=== PATIENT | male | born 1960 | race Caucasian/White ===

== ENCOUNTER 2021-02-05 10:31 | Inpatient (IN) | payer OTHER ==
[2021-02-05 12:16] VITALS: BMI 22.0
[2021-02-05] MEDS ORDERED: diazePAM 5 MG TABLET PO PRN (14:03)
[2021-02-05] MEDS ORDERED: IBUPROFEN 400 MG TABLET (FP) PO PRN (14:03)
[2021-02-05] MEDS ORDERED: MENTHOL/PHENOL 1 EACH UD MM PRN (14:03)
[2021-02-05] MEDS ORDERED: NICOTINE POLACRILEX 2 MG GUM BUC PRN (14:03)
[2021-02-05] MEDS ORDERED: MAG HYDROX/AL HYDROX/SIMETH 30 ML UNIT-DOSE CUP PO PRN (14:03)
[2021-02-05] MEDS ORDERED: ONDANSETRON *ODT* 4 MG TABLET SL PRN (14:03)
[2021-02-05] MEDS ORDERED: MAGNESIUM CITRATE 300 ML BOTTLE PO PRN (14:03)
[2021-02-05] MEDS ORDERED: BISMUTH SUBSALICYLATE 524 MG/30 ML PO PRN (14:03)
[2021-02-05] MEDS ORDERED: ACETAMINOPHEN 325 MG TABLET (FP) PO PRN ×2 (14:03)
[2021-02-05] MEDS ORDERED: METHOCARBAMOL 500 MG TABLET PO PRN (14:03)
[2021-02-05] MEDS ORDERED: MAGNESIUM HYDROX 2400MG/30ML ORAL SUSPENSION 30 ML CUP PO PRN (14:03)
[2021-02-05] MEDS ORDERED: IBUPROFEN 400 MG TABLET (FP) PO ONE (14:25)
[2021-02-05] MEDS: diazePAM 5 MG TABLET PO SCH ×2 (16:56→22:28)
[2021-02-05] MEDS: metFORMIN HCL 500 MG TABLET (FP) PO SCH (16:56)
[2021-02-05] MEDS: INSULIN SLIDING SCALE (NOVOLOG) 1 VIAL SQ SCH ×2 (16:58→22:00)
[2021-02-05] MEDS: hydrOXYzine PAMOATE 25 MG CAPSULE (FP) PO SCH ×2 (17:01→22:27)
[2021-02-05] MEDS: guaiFENesin 200 MG/10 ML 10 ML UNIT-DOSE CUPS PO PRN (20:46)
[2021-02-05] MEDS: MELATONIN 5 MG TABLETS PO SCH (22:27)
[2021-02-05] MEDS: THIAMINE HCL 100 MG TABLET (FP) PO SCH (22:27)
[2021-02-05] MEDS: FLUOCINONIDE 0.05% CREAM (15 GM TUBE) TP SCH (22:27)
[2021-02-05] MEDS ORDERED: INSULIN SLIDING SCALE (NOVOLOG) 1 VIAL SQ ONE (22:39)
[2021-02-05] MEDS ORDERED: INSULIN (LEVEMIR) 100 UNITS/ML UNITS SQ ONE (22:39)
[2021-02-06] MEDS: guaiFENesin 200 MG/10 ML 10 ML UNIT-DOSE CUPS PO PRN (04:06)
[2021-02-06] MEDS: hydrOXYzine PAMOATE 25 MG CAPSULE (FP) PO SCH ×5 (05:27→22:03)
[2021-02-06] MEDS: diazePAM 5 MG TABLET PO SCH ×4 (05:27→22:01)
[2021-02-06] MEDS: metFORMIN HCL 500 MG TABLET (FP) PO SCH ×2 (07:01→17:34)
[2021-02-06] MEDS: INSULIN SLIDING SCALE (NOVOLOG) 1 VIAL SQ SCH ×4 (07:03→22:03)
[2021-02-06 10:10] LABS: HEMATOCRIT 36.7 % (35.4-49); MCH 30.7 pg (25.7-33.7); MCHC 32.7 g/dl (32.0-35.9); MEAN CELL VOLUME 93.8 fl (80-96); MEAN PLT VOLUME 7.3 fl (7.5-11.1); PLATELET COUNT 293 10^3/uL (134-434); RBC 3.92 M/mm3 (4.00-5.60); RDW 14.4 % (11.9-15.9); WHITE BLOOD COUNT 11.8 K/mm3 (4.0-10.0)
[2021-02-06 10:15] LABS: ALBUMIN 3.1 g/dl (3.4-5.0); BLOOD UREA NITROGEN 12.2 mg/dL (7-18); CALCIUM 9.5 mg/dL (8.5-10.1)
[2021-02-06 10:18] LABS: CREATININE 0.8 mg/dL (0.55-1.3)
[2021-02-06 10:20] LABS: BILIRUBIN,TOTAL 0.4 mg/dL (0.2-1); TOT PROT 6.5 g/dl (6.4-8.2)
[2021-02-06] MEDS: ASPIRIN COATED 81 MG TABLET.EC PO SCH (10:33)
[2021-02-06] MEDS: METOPROLOL TARTRATE 50 MG TABLET (FP) PO SCH (10:33)
[2021-02-06] MEDS: PRENATAL VITAMINS W/ FOLIC ACID TABLET (FP) PO SCH (10:33)
[2021-02-06] MEDS: amLODIPine BESYLATE 10 MG TABLET (FP) PO SCH (10:33)
[2021-02-06] MEDS: FLUOCINONIDE 0.05% CREAM (15 GM TUBE) TP SCH ×2 (10:34→22:23)
[2021-02-06] MEDS: MELATONIN 5 MG TABLETS PO SCH (22:01)
[2021-02-06] MEDS: OLANZapine 10 MG TABLET PO SCH (22:01)
[2021-02-06] MEDS: THIAMINE HCL 100 MG TABLET (FP) PO SCH (22:01)
[2021-02-06] MEDS: BENZTROPINE MESYLATE 1 MG TABLET PO SCH (22:01)
[2021-02-07] MEDS: diazePAM 5 MG TABLET PO SCH ×3 (06:17→21:55)
[2021-02-07] MEDS: metFORMIN HCL 500 MG TABLET (FP) PO SCH ×2 (06:17→16:52)
[2021-02-07] MEDS: hydrOXYzine PAMOATE 25 MG CAPSULE (FP) PO SCH ×5 (06:18→21:48)
[2021-02-07] MEDS: INSULIN SLIDING SCALE (NOVOLOG) 1 VIAL SQ SCH ×4 (06:25→21:51)
[2021-02-07] MEDS: PRENATAL VITAMINS W/ FOLIC ACID TABLET (FP) PO SCH (10:13)
[2021-02-07] MEDS: amLODIPine BESYLATE 10 MG TABLET (FP) PO SCH (10:13)
[2021-02-07] MEDS: METOPROLOL TARTRATE 50 MG TABLET (FP) PO SCH (10:13)
[2021-02-07] MEDS: ASPIRIN COATED 81 MG TABLET.EC PO SCH (10:13)
[2021-02-07] MEDS: FLUOCINONIDE 0.05% CREAM (15 GM TUBE) TP SCH ×2 (10:14→21:50)
[2021-02-07 15:06] LABS: EPI CELLS 7 /uL (0-25.1); HYALINE CASTS 1 /uL (0-3.1); PH,URINE 5.5 (5.0-8.0); URINE APPEARANCE CLEAR; URINE BACTERIA 374 /uL (0-1359); URINE BILIRUBIN NEGATIVE (NEGATIVE); URINE COLOR YELLOW; URINE GLUCOSE (UA) 3+ (NEGATIVE); URINE KETONE TRACE (NEGATIVE); URINE LEUK ESTERASE NEGATIVE (NEGATIVE); URINE NITRITE NEGATIVE (NEGATIVE); URINE PROTEIN 3+ (NEGATIVE); URINE RBC 6 /uL (0-23.9); URINE UROBILINOGEN 0.2 mg/dL (0.2-1.0); URINE WBC 5 /uL (0-25.8)
[2021-02-07] MEDS ORDERED: INSULIN SLIDING SCALE (NOVOLOG) 1 VIAL SQ ONE ×2 (16:49→21:46)
[2021-02-07] MEDS: THIAMINE HCL 100 MG TABLET (FP) PO SCH (21:48)
[2021-02-07] MEDS: BENZTROPINE MESYLATE 1 MG TABLET PO SCH (21:48)
[2021-02-07] MEDS: OLANZapine 10 MG TABLET PO SCH (21:48)
[2021-02-07] MEDS: MELATONIN 5 MG TABLETS PO SCH (21:48)
[2021-02-08] MEDS: metFORMIN HCL 500 MG TABLET (FP) PO SCH ×2 (06:20→17:41)
[2021-02-08] MEDS: INSULIN SLIDING SCALE (NOVOLOG) 1 VIAL SQ SCH ×4 (06:21→22:43)
[2021-02-08] MEDS: hydrOXYzine PAMOATE 25 MG CAPSULE (FP) PO SCH ×5 (06:26→22:43)
[2021-02-08] MEDS: diazePAM 5 MG TABLET PO SCH ×2 (06:26→17:41)
[2021-02-08] MEDS: METOPROLOL TARTRATE 50 MG TABLET (FP) PO SCH (10:36)
[2021-02-08] MEDS: PRENATAL VITAMINS W/ FOLIC ACID TABLET (FP) PO SCH (10:36)
[2021-02-08] MEDS: ASPIRIN COATED 81 MG TABLET.EC PO SCH (10:36)
[2021-02-08] MEDS: FLUOCINONIDE 0.05% CREAM (15 GM TUBE) TP SCH ×2 (10:36→22:43)
[2021-02-08] MEDS: amLODIPine BESYLATE 10 MG TABLET (FP) PO SCH (10:36)
[2021-02-08 10:39] LABS: HEMATOCRIT 36.3 % (35.4-49); HEMOGLOBIN 11.8 GM/dL (11.7-16.9); MCH 30.4 pg (25.7-33.7); MCHC 32.4 g/dl (32.0-35.9); MEAN CELL VOLUME 93.7 fl (80-96); MEAN PLT VOLUME 7.5 fl (7.5-11.1); PLATELET COUNT 317 10^3/uL (134-434); RBC 3.88 M/mm3 (4.00-5.60); RDW 14.2 % (11.9-15.9); WHITE BLOOD COUNT 11.4 K/mm3 (4.0-10.0)
[2021-02-08 14:08] LABS: SARS-CoV-2 NAA Not Detected (Not Detected)
[2021-02-08] MEDS: THIAMINE HCL 100 MG TABLET (FP) PO SCH (22:41)
[2021-02-08] MEDS: OLANZapine 10 MG TABLET PO SCH (22:41)
[2021-02-08] MEDS: BENZTROPINE MESYLATE 1 MG TABLET PO SCH (22:41)
[2021-02-08] MEDS: MELATONIN 5 MG TABLETS PO SCH (22:41)
[2021-02-08] MEDS ORDERED: INSULIN SLIDING SCALE (NOVOLOG) 1 VIAL SQ ONE (23:39)
[2021-02-09] MEDS: hydrOXYzine PAMOATE 25 MG CAPSULE (FP) PO SCH ×2 (05:54→10:23)
[2021-02-09] MEDS ORDERED: diazePAM 5 MG TABLET PO ONE (06:00)
[2021-02-09] MEDS: INSULIN SLIDING SCALE (NOVOLOG) 1 VIAL SQ SCH (06:06)
[2021-02-09] MEDS: metFORMIN HCL 500 MG TABLET (FP) PO SCH (06:06)
[2021-02-09] MEDS ORDERED: INSULIN SLIDING SCALE (NOVOLOG) 1 VIAL SQ ONE (06:11)
[2021-02-09] MEDS: ALBUTEROL SO4 HFA INHALER IH PRN ×2 (07:06→09:24)
[2021-02-09 09:27] VITALS: BP 135/81; PULSE 97; TEMP 96.8
[2021-02-09] MEDS: amLODIPine BESYLATE 10 MG TABLET (FP) PO SCH (10:22)
[2021-02-09] MEDS: ASPIRIN COATED 81 MG TABLET.EC PO SCH (10:22)
[2021-02-09] MEDS: PRENATAL VITAMINS W/ FOLIC ACID TABLET (FP) PO SCH (10:22)
[2021-02-09] MEDS: FLUOCINONIDE 0.05% CREAM (15 GM TUBE) TP SCH (10:22)
[2021-02-09] MEDS: METOPROLOL TARTRATE 50 MG TABLET (FP) PO SCH (10:22)
== END 2021-02-09 12:05 | disposition other institution (70) | DRG 773 ==
LOC: YASAS 10:31 → Y3N 14:33
PROVIDERS: ADMIT Allergy & Immunology; ATTEND Allergy & Immunology
PROC: HZ2ZZZZ Detoxification Services for Substance Abuse Treatment (ICD-10-PCS; principal; 2021-02-05)
DX: F10.230 Alcohol dependence with withdrawal, uncomplicated (principal); F11.20 Opioid dependence, uncomplicated; F13.230 Sedative, hypnotic or anxiolytic dependence with withdrawal, uncomplicated; F14.20 Cocaine dependence, uncomplicated; F12.20 Cannabis dependence, uncomplicated; F17.210 Nicotine dependence, cigarettes, uncomplicated; F19.282 Other psychoactive substance dependence with psychoactive substance-induced sleep disorder; F25.9 Schizoaffective disorder, unspecified; E78.5 Hyperlipidemia, unspecified; I10 Essential (primary) hypertension; J45.909 Unspecified asthma, uncomplicated; E11.9 Type 2 diabetes mellitus without complications; Z79.4 Long term (current) use of insulin; L30.9 Dermatitis, unspecified; B18.2 Chronic viral hepatitis C; R60.0 Localized edema; Z96.642 Presence of left artificial hip joint; Z99.89 Dependence on other enabling machines and devices; Z56.0 Unemployment, unspecified; Z59.0 Homelessness; Z98.890 Other specified postprocedural states
CPT/HCPCS: 36415; 80053; 81003; 82962; 85027; 86780; 93005; 93010; C9803; U0003; U0005

== ENCOUNTER 2022-01-18 15:12 | Inpatient (IN) | payer OTHER ==
[2022-01-18] MEDS ORDERED: IBUPROFEN 600 MG TABLET (FP) PO PRN (18:13)
[2022-01-18] MEDS ORDERED: DICYCLOMINE HCL 10 MG CAPSULE PO PRN (18:13)
[2022-01-18] MEDS ORDERED: BISMUTH SUBSALICYLATE 524 MG/30 ML PO PRN (18:13)
[2022-01-18] MEDS ORDERED: METHOCARBAMOL 500 MG TABLET PO PRN (18:13)
[2022-01-18] MEDS ORDERED: MAG HYDROX/AL HYDROX/SIMETH 30 ML UNIT-DOSE CUP PO PRN (18:13)
[2022-01-18] MEDS ORDERED: IBUPROFEN 400 MG TABLET (FP) PO PRN (18:13)
[2022-01-18] MEDS ORDERED: MAGNESIUM HYDROX 2400MG/30ML ORAL SUSPENSION 30 ML CUP PO PRN (18:13)
[2022-01-18] MEDS ORDERED: MAGNESIUM CITRATE 300 ML BOTTLE PO PRN (18:13)
[2022-01-18] MEDS ORDERED: NICOTINE POLACRILEX 2 MG GUM BUC PRN (18:13)
[2022-01-18] MEDS ORDERED: ONDANSETRON *ODT* 4 MG TABLET SL PRN (18:13)
[2022-01-18] MEDS ORDERED: BENZOCAINE/MENTHOL (CHLORASEPTIC ) LOZENGE MM PRN (18:13)
[2022-01-18] MEDS ORDERED: ACETAMINOPHEN 325 MG TABLET (FP) PO PRN ×2 (18:13)
[2022-01-18] MEDS ORDERED: MELATONIN 5 MG TABLETS PO PRN (18:13)
[2022-01-18] MEDS ORDERED: LOPERAMIDE HCL 2 MG CAPSULE PO PRN (18:13)
[2022-01-18 20:02] VITALS: BMI 23.7
[2022-01-18] MEDS: METOPROLOL TARTRATE 50 MG TABLET (FP) PO SCH (21:50)
[2022-01-18] MEDS: ASPIRIN COATED 81 MG TABLET.EC PO SCH (21:50)
[2022-01-18] MEDS: amLODIPine BESYLATE 5 MG TABLET (FP) PO SCH (21:51)
[2022-01-18] MEDS: THIAMINE HCL 100 MG TABLET (FP) PO SCH (21:51)
[2022-01-18] MEDS: hydrOXYzine PAMOATE 25 MG CAPSULE (FP) PO PRN (21:53)
[2022-01-18] MEDS: INSULIN SLIDING SCALE (NOVOLOG) 1 VIAL SQ SCH (22:03)
[2022-01-19] MEDS: hydrOXYzine PAMOATE 25 MG CAPSULE (FP) PO PRN (05:51)
[2022-01-19] MEDS: metFORMIN HCL 500 MG TABLET (FP) PO SCH ×2 (06:46→17:39)
[2022-01-19] MEDS: INSULIN SLIDING SCALE (NOVOLOG) 1 VIAL SQ SCH ×4 (06:54→22:12)
[2022-01-19] MEDS: amLODIPine BESYLATE 5 MG TABLET (FP) PO SCH (10:18)
[2022-01-19] MEDS: ASPIRIN COATED 81 MG TABLET.EC PO SCH (10:18)
[2022-01-19] MEDS: METOPROLOL TARTRATE 50 MG TABLET (FP) PO SCH (10:18)
[2022-01-19] MEDS: PRENATAL VITAMINS W/ FOLIC ACID TABLET (FP) PO SCH (10:18)
[2022-01-19 11:07] LABS: HEMATOCRIT 41.2 % (35.4-49); HEMOGLOBIN 13.9 GM/dL (11.7-16.9); MCH 30.4 pg (25.7-33.7); MCHC 33.7 g/dl (32.0-35.9); MEAN CELL VOLUME 90.2 fl (80-96); MEAN PLT VOLUME 7.5 fl (7.5-11.1); PLATELET COUNT 239 10^3/uL (134-434); RBC 4.56 M/mm3 (4.00-5.60)
[2022-01-19 11:11] LABS: BLOOD UREA NITROGEN 19.4 mg/dL (7-18); CALCIUM 10.2 mg/dL (8.5-10.1)
[2022-01-19 11:12] LABS: ALBUMIN 4.2 g/dl (3.4-5.0)
[2022-01-19 11:14] LABS: CREATININE 0.9 mg/dL (0.55-1.3)
[2022-01-19 11:16] LABS: BILIRUBIN,TOTAL 0.5 mg/dL (0.2-1); TOT PROT 8.1 g/dl (6.4-8.2)
[2022-01-19] MEDS ORDERED: METOPROLOL TARTRATE 25 MG TABLET (FP) PO ONE (18:25)
[2022-01-19] MEDS: THIAMINE HCL 100 MG TABLET (FP) PO SCH (21:50)
[2022-01-19] MEDS ORDERED: OLANZapine 10 MG TABLET PO SCH (22:00)
[2022-01-20] MEDS: INSULIN SLIDING SCALE (NOVOLOG) 1 VIAL SQ SCH ×2 (06:54→11:12)
[2022-01-20] MEDS: metFORMIN HCL 500 MG TABLET (FP) PO SCH (06:56)
[2022-01-20] MEDS ORDERED: SERTRALINE HCL 50 MG TABLET (FP) PO SCH (10:00)
[2022-01-20] MEDS: PRENATAL VITAMINS W/ FOLIC ACID TABLET (FP) PO SCH (10:25)
[2022-01-20] MEDS: hydrOXYzine PAMOATE 25 MG CAPSULE (FP) PO PRN (10:26)
[2022-01-20] MEDS: amLODIPine BESYLATE 5 MG TABLET (FP) PO SCH (10:26)
[2022-01-20] MEDS: ASPIRIN COATED 81 MG TABLET.EC PO SCH (10:26)
[2022-01-20] MEDS: METOPROLOL TARTRATE 50 MG TABLET (FP) PO SCH (10:26)
[2022-01-20 13:00] VITALS: BP 110/67; PULSE 73; TEMP 96.9
== END 2022-01-20 13:15 | disposition other institution (70) | DRG 774 ==
LOC: YASAS 15:12 → Y3N 21:03
PROVIDERS: ADMIT Allergy & Immunology; ATTEND Surgery
PROC: HZ2ZZZZ Detoxification Services for Substance Abuse Treatment (ICD-10-PCS; principal; 2022-01-18)
DX: F10.230 Alcohol dependence with withdrawal, uncomplicated (principal); F14.20 Cocaine dependence, uncomplicated; F12.20 Cannabis dependence, uncomplicated; F17.210 Nicotine dependence, cigarettes, uncomplicated; F25.9 Schizoaffective disorder, unspecified; I10 Essential (primary) hypertension; E78.5 Hyperlipidemia, unspecified; E11.9 Type 2 diabetes mellitus without complications; Z79.84 Long term (current) use of oral hypoglycemic drugs; J45.909 Unspecified asthma, uncomplicated; B18.2 Chronic viral hepatitis C; Z56.0 Unemployment, unspecified; Z59.00 Homelessness unspecified
CPT/HCPCS: 36415; 80053; 82962; 85027; 86780; 87811; C9803-CS; U0003; U0005

== ENCOUNTER 2022-01-20 13:24 | Inpatient (IN) | payer OTHER ==
[2022-01-20] MEDS ORDERED: BENZOCAINE/MENTHOL (CHLORASEPTIC ) LOZENGE MM PRN (14:07)
[2022-01-20] MEDS ORDERED: LOPERAMIDE HCL 2 MG CAPSULE PO PRN (14:07)
[2022-01-20] MEDS ORDERED: P-EPHED 60MG/TRIPROLIDI 2.5MG TABLET PO PRN (14:07)
[2022-01-20] MEDS ORDERED: IBUPROFEN 400 MG TABLET (FP) PO PRN (14:07)
[2022-01-20] MEDS ORDERED: ACETAMINOPHEN 325 MG TABLET (FP) PO PRN (14:07)
[2022-01-20] MEDS ORDERED: MAG HYDROX/AL HYDROX/SIMETH 30 ML UNIT-DOSE CUP PO PRN (14:07)
[2022-01-20] MEDS ORDERED: hydrOXYzine PAMOATE 25 MG CAPSULE (FP) PO PRN (14:07)
[2022-01-20] MEDS ORDERED: MAGNESIUM HYDROX 2400MG/30ML ORAL SUSPENSION 30 ML CUP PO PRN (14:07)
[2022-01-20] MEDS ORDERED: MAGNESIUM CITRATE 300 ML BOTTLE PO PRN (14:07)
[2022-01-20] MEDS ORDERED: guaiFENesin 200 MG/10 ML 10 ML UNIT-DOSE CUPS PO PRN (14:07)
[2022-01-20] MEDS: THIAMINE HCL 100 MG TABLET (FP) PO SCH (21:27)
[2022-01-20] MEDS: MELATONIN 5 MG TABLETS PO SCH (21:27)
[2022-01-21] MEDS: metFORMIN HCL 500 MG TABLET (FP) PO SCH ×2 (06:16→16:51)
[2022-01-21] MEDS: ASPIRIN COATED 81 MG TABLET.EC PO SCH (10:22)
[2022-01-21] MEDS: amLODIPine BESYLATE 10 MG TABLET (FP) PO SCH (10:22)
[2022-01-21] MEDS: NICOTINE 7 MG/24 HOURS TOPICAL PATCH TD SCH (10:23)
[2022-01-21] MEDS: PRENATAL VITAMINS W/ FOLIC ACID TABLET (FP) PO SCH (10:23)
[2022-01-21] MEDS: METOPROLOL TARTRATE 50 MG TABLET (FP) PO SCH (10:23)
[2022-01-21] MEDS: NICOTINE 10 MG CARTRIDGE (INHALER) IH PRN (19:16)
[2022-01-21] MEDS: THIAMINE HCL 100 MG TABLET (FP) PO SCH (21:12)
[2022-01-21] MEDS: MELATONIN 5 MG TABLETS PO SCH (21:12)
[2022-01-21] MEDS: OLANZapine 10 MG TABLET PO SCH (21:13)
[2022-01-22] MEDS: metFORMIN HCL 500 MG TABLET (FP) PO SCH ×2 (07:21→16:52)
[2022-01-22] MEDS: METOPROLOL TARTRATE 50 MG TABLET (FP) PO SCH (10:30)
[2022-01-22] MEDS: SERTRALINE HCL 50 MG TABLET (FP) PO SCH (10:30)
[2022-01-22] MEDS: PRENATAL VITAMINS W/ FOLIC ACID TABLET (FP) PO SCH (10:30)
[2022-01-22] MEDS: NICOTINE 7 MG/24 HOURS TOPICAL PATCH TD SCH (10:30)
[2022-01-22] MEDS: amLODIPine BESYLATE 10 MG TABLET (FP) PO SCH (10:30)
[2022-01-22] MEDS: ASPIRIN COATED 81 MG TABLET.EC PO SCH (10:30)
[2022-01-22] MEDS: MELATONIN 5 MG TABLETS PO SCH (21:39)
[2022-01-22] MEDS: THIAMINE HCL 100 MG TABLET (FP) PO SCH (21:39)
[2022-01-22] MEDS: OLANZapine 10 MG TABLET PO SCH (21:40)
[2022-01-23] MEDS: metFORMIN HCL 500 MG TABLET (FP) PO SCH ×2 (07:21→16:43)
[2022-01-23] MEDS: amLODIPine BESYLATE 10 MG TABLET (FP) PO SCH (09:50)
[2022-01-23] MEDS: NICOTINE 7 MG/24 HOURS TOPICAL PATCH TD SCH (09:50)
[2022-01-23] MEDS: PRENATAL VITAMINS W/ FOLIC ACID TABLET (FP) PO SCH (09:50)
[2022-01-23] MEDS: METOPROLOL TARTRATE 50 MG TABLET (FP) PO SCH (09:50)
[2022-01-23] MEDS: SERTRALINE HCL 50 MG TABLET (FP) PO SCH (09:50)
[2022-01-23] MEDS: ASPIRIN COATED 81 MG TABLET.EC PO SCH (09:50)
[2022-01-23] MEDS: THIAMINE HCL 100 MG TABLET (FP) PO SCH (21:18)
[2022-01-23] MEDS: MELATONIN 5 MG TABLETS PO SCH (21:18)
[2022-01-23] MEDS: OLANZapine 10 MG TABLET PO SCH (21:18)
[2022-01-24] MEDS: metFORMIN HCL 500 MG TABLET (FP) PO SCH ×2 (07:39→16:33)
[2022-01-24] MEDS: amLODIPine BESYLATE 10 MG TABLET (FP) PO SCH (10:11)
[2022-01-24] MEDS: PRENATAL VITAMINS W/ FOLIC ACID TABLET (FP) PO SCH (10:11)
[2022-01-24] MEDS: ASPIRIN COATED 81 MG TABLET.EC PO SCH (10:11)
[2022-01-24] MEDS: SERTRALINE HCL 50 MG TABLET (FP) PO SCH (10:11)
[2022-01-24] MEDS: NICOTINE 7 MG/24 HOURS TOPICAL PATCH TD SCH (10:11)
[2022-01-24] MEDS: METOPROLOL TARTRATE 50 MG TABLET (FP) PO SCH (10:11)
[2022-01-24] MEDS: MELATONIN 5 MG TABLETS PO SCH (21:33)
[2022-01-24] MEDS: OLANZapine 10 MG TABLET PO SCH (21:33)
[2022-01-24] MEDS: THIAMINE HCL 100 MG TABLET (FP) PO SCH (21:33)
[2022-01-25] MEDS: metFORMIN HCL 500 MG TABLET (FP) PO SCH ×2 (06:49→16:48)
[2022-01-25] MEDS: amLODIPine BESYLATE 10 MG TABLET (FP) PO SCH (09:55)
[2022-01-25] MEDS: ASPIRIN COATED 81 MG TABLET.EC PO SCH (09:55)
[2022-01-25] MEDS: SERTRALINE HCL 50 MG TABLET (FP) PO SCH (09:56)
[2022-01-25] MEDS: PRENATAL VITAMINS W/ FOLIC ACID TABLET (FP) PO SCH (09:56)
[2022-01-25] MEDS: NICOTINE 7 MG/24 HOURS TOPICAL PATCH TD SCH (09:56)
[2022-01-25] MEDS: METOPROLOL TARTRATE 50 MG TABLET (FP) PO SCH (09:56)
[2022-01-25] MEDS: OLANZapine 10 MG TABLET PO SCH (21:24)
[2022-01-25] MEDS: MELATONIN 5 MG TABLETS PO SCH (21:24)
[2022-01-25] MEDS: THIAMINE HCL 100 MG TABLET (FP) PO SCH (21:24)
[2022-01-26] MEDS: metFORMIN HCL 500 MG TABLET (FP) PO SCH ×2 (07:11→16:33)
[2022-01-26] MEDS: METOPROLOL TARTRATE 50 MG TABLET (FP) PO SCH (10:08)
[2022-01-26] MEDS: amLODIPine BESYLATE 10 MG TABLET (FP) PO SCH (10:08)
[2022-01-26] MEDS: SERTRALINE HCL 50 MG TABLET (FP) PO SCH (10:08)
[2022-01-26] MEDS: ASPIRIN COATED 81 MG TABLET.EC PO SCH (10:08)
[2022-01-26] MEDS: PRENATAL VITAMINS W/ FOLIC ACID TABLET (FP) PO SCH (10:08)
[2022-01-26] MEDS: NICOTINE 7 MG/24 HOURS TOPICAL PATCH TD SCH (10:08)
[2022-01-26] MEDS: THIAMINE HCL 100 MG TABLET (FP) PO SCH (21:21)
[2022-01-26] MEDS: OLANZapine 10 MG TABLET PO SCH (21:21)
[2022-01-26] MEDS: MELATONIN 5 MG TABLETS PO SCH (21:21)
[2022-01-27] MEDS: metFORMIN HCL 500 MG TABLET (FP) PO SCH ×2 (06:50→17:36)
[2022-01-27] MEDS: ASPIRIN COATED 81 MG TABLET.EC PO SCH (09:06)
[2022-01-27] MEDS: amLODIPine BESYLATE 10 MG TABLET (FP) PO SCH (09:06)
[2022-01-27] MEDS: SERTRALINE HCL 50 MG TABLET (FP) PO SCH (09:06)
[2022-01-27] MEDS: NICOTINE 7 MG/24 HOURS TOPICAL PATCH TD SCH (09:07)
[2022-01-27] MEDS: PRENATAL VITAMINS W/ FOLIC ACID TABLET (FP) PO SCH (09:07)
[2022-01-27] MEDS: METOPROLOL TARTRATE 50 MG TABLET (FP) PO SCH (09:55)
[2022-01-27] MEDS: THIAMINE HCL 100 MG TABLET (FP) PO SCH (22:00)
[2022-01-27] MEDS: MELATONIN 5 MG TABLETS PO SCH (22:00)
[2022-01-27] MEDS: OLANZapine 10 MG TABLET PO SCH (23:08)
[2022-01-28] MEDS: metFORMIN HCL 500 MG TABLET (FP) PO SCH ×2 (06:10→16:54)
[2022-01-28] MEDS: METOPROLOL TARTRATE 50 MG TABLET (FP) PO SCH (09:24)
[2022-01-28] MEDS: ASPIRIN COATED 81 MG TABLET.EC PO SCH (09:24)
[2022-01-28] MEDS: amLODIPine BESYLATE 10 MG TABLET (FP) PO SCH (09:25)
[2022-01-28] MEDS: SERTRALINE HCL 50 MG TABLET (FP) PO SCH (09:25)
[2022-01-28] MEDS: NICOTINE 7 MG/24 HOURS TOPICAL PATCH TD SCH (09:25)
[2022-01-28] MEDS: PRENATAL VITAMINS W/ FOLIC ACID TABLET (FP) PO SCH (09:25)
[2022-01-28] MEDS: MELATONIN 5 MG TABLETS PO SCH (21:29)
[2022-01-28] MEDS: THIAMINE HCL 100 MG TABLET (FP) PO SCH (21:29)
[2022-01-28] MEDS: OLANZapine 10 MG TABLET PO SCH (21:29)
[2022-01-29] MEDS: metFORMIN HCL 500 MG TABLET (FP) PO SCH ×2 (07:18→16:45)
[2022-01-29] MEDS: PRENATAL VITAMINS W/ FOLIC ACID TABLET (FP) PO SCH (10:14)
[2022-01-29] MEDS: ASPIRIN COATED 81 MG TABLET.EC PO SCH (10:14)
[2022-01-29] MEDS: amLODIPine BESYLATE 10 MG TABLET (FP) PO SCH (10:14)
[2022-01-29] MEDS: SERTRALINE HCL 50 MG TABLET (FP) PO SCH (10:14)
[2022-01-29] MEDS: METOPROLOL TARTRATE 50 MG TABLET (FP) PO SCH (10:14)
[2022-01-29] MEDS: NICOTINE 7 MG/24 HOURS TOPICAL PATCH TD SCH (10:15)
[2022-01-29] MEDS: OLANZapine 10 MG TABLET PO SCH (21:12)
[2022-01-29] MEDS: MELATONIN 5 MG TABLETS PO SCH (21:12)
[2022-01-29] MEDS: THIAMINE HCL 100 MG TABLET (FP) PO SCH (21:12)
[2022-01-30] MEDS: metFORMIN HCL 500 MG TABLET (FP) PO SCH ×2 (06:22→16:35)
[2022-01-30] MEDS: ASPIRIN COATED 81 MG TABLET.EC PO SCH (10:19)
[2022-01-30] MEDS: amLODIPine BESYLATE 10 MG TABLET (FP) PO SCH (10:20)
[2022-01-30] MEDS: PRENATAL VITAMINS W/ FOLIC ACID TABLET (FP) PO SCH (10:20)
[2022-01-30] MEDS: SERTRALINE HCL 50 MG TABLET (FP) PO SCH (10:20)
[2022-01-30] MEDS: METOPROLOL TARTRATE 50 MG TABLET (FP) PO SCH (10:20)
[2022-01-30] MEDS: NICOTINE 7 MG/24 HOURS TOPICAL PATCH TD SCH (10:20)
[2022-01-30] MEDS: MELATONIN 5 MG TABLETS PO SCH (21:34)
[2022-01-30] MEDS: THIAMINE HCL 100 MG TABLET (FP) PO SCH (21:34)
[2022-01-30] MEDS: OLANZapine 10 MG TABLET PO SCH (21:35)
[2022-01-31] MEDS: metFORMIN HCL 500 MG TABLET (FP) PO SCH ×2 (06:15→16:37)
[2022-01-31] MEDS: ASPIRIN COATED 81 MG TABLET.EC PO SCH (09:57)
[2022-01-31] MEDS: SERTRALINE HCL 50 MG TABLET (FP) PO SCH (09:58)
[2022-01-31] MEDS: NICOTINE 7 MG/24 HOURS TOPICAL PATCH TD SCH (09:58)
[2022-01-31] MEDS: amLODIPine BESYLATE 10 MG TABLET (FP) PO SCH (09:58)
[2022-01-31] MEDS: METOPROLOL TARTRATE 50 MG TABLET (FP) PO SCH (09:58)
[2022-01-31] MEDS: PRENATAL VITAMINS W/ FOLIC ACID TABLET (FP) PO SCH (09:58)
[2022-01-31] MEDS: OLANZapine 10 MG TABLET PO SCH (21:05)
[2022-01-31] MEDS: THIAMINE HCL 100 MG TABLET (FP) PO SCH (21:05)
[2022-01-31] MEDS: MELATONIN 5 MG TABLETS PO SCH (21:05)
[2022-02-01] MEDS: metFORMIN HCL 500 MG TABLET (FP) PO SCH ×2 (06:37→16:40)
[2022-02-01] MEDS: SERTRALINE HCL 50 MG TABLET (FP) PO SCH (10:05)
[2022-02-01] MEDS: amLODIPine BESYLATE 10 MG TABLET (FP) PO SCH (10:05)
[2022-02-01] MEDS: METOPROLOL TARTRATE 50 MG TABLET (FP) PO SCH (10:05)
[2022-02-01] MEDS: ASPIRIN COATED 81 MG TABLET.EC PO SCH (10:05)
[2022-02-01] MEDS: PRENATAL VITAMINS W/ FOLIC ACID TABLET (FP) PO SCH (10:05)
[2022-02-01] MEDS: NICOTINE 7 MG/24 HOURS TOPICAL PATCH TD SCH (10:06)
[2022-02-01] MEDS: MELATONIN 5 MG TABLETS PO SCH (21:12)
[2022-02-01] MEDS: OLANZapine 10 MG TABLET PO SCH (21:12)
[2022-02-01] MEDS: THIAMINE HCL 100 MG TABLET (FP) PO SCH (21:12)
[2022-02-02] MEDS: metFORMIN HCL 500 MG TABLET (FP) PO SCH ×2 (07:33→16:52)
[2022-02-02] MEDS: NICOTINE 7 MG/24 HOURS TOPICAL PATCH TD SCH (09:53)
[2022-02-02] MEDS: PRENATAL VITAMINS W/ FOLIC ACID TABLET (FP) PO SCH (09:53)
[2022-02-02] MEDS: amLODIPine BESYLATE 10 MG TABLET (FP) PO SCH (09:53)
[2022-02-02] MEDS: METOPROLOL TARTRATE 50 MG TABLET (FP) PO SCH (09:53)
[2022-02-02] MEDS: ASPIRIN COATED 81 MG TABLET.EC PO SCH (09:53)
[2022-02-02] MEDS: SERTRALINE HCL 50 MG TABLET (FP) PO SCH (09:53)
[2022-02-02] MEDS: OLANZapine 10 MG TABLET PO SCH (21:25)
[2022-02-02] MEDS: THIAMINE HCL 100 MG TABLET (FP) PO SCH (21:25)
[2022-02-02] MEDS: MELATONIN 5 MG TABLETS PO SCH (21:25)
[2022-02-03] MEDS: metFORMIN HCL 500 MG TABLET (FP) PO SCH ×2 (06:27→17:05)
[2022-02-03] MEDS: SERTRALINE HCL 50 MG TABLET (FP) PO SCH (10:17)
[2022-02-03] MEDS: amLODIPine BESYLATE 10 MG TABLET (FP) PO SCH (10:18)
[2022-02-03] MEDS: NICOTINE 7 MG/24 HOURS TOPICAL PATCH TD SCH (10:18)
[2022-02-03] MEDS: METOPROLOL TARTRATE 50 MG TABLET (FP) PO SCH (10:18)
[2022-02-03] MEDS: ASPIRIN COATED 81 MG TABLET.EC PO SCH (10:18)
[2022-02-03] MEDS: PRENATAL VITAMINS W/ FOLIC ACID TABLET (FP) PO SCH (10:18)
[2022-02-03] MEDS: OLANZapine 10 MG TABLET PO SCH (21:50)
[2022-02-03] MEDS: THIAMINE HCL 100 MG TABLET (FP) PO SCH (21:50)
[2022-02-03] MEDS: MELATONIN 5 MG TABLETS PO SCH (21:50)
[2022-02-04] MEDS: metFORMIN HCL 500 MG TABLET (FP) PO SCH ×2 (06:27→16:54)
[2022-02-04] MEDS: ASPIRIN COATED 81 MG TABLET.EC PO SCH (10:12)
[2022-02-04] MEDS: METOPROLOL TARTRATE 50 MG TABLET (FP) PO SCH (10:12)
[2022-02-04] MEDS: SERTRALINE HCL 50 MG TABLET (FP) PO SCH (10:12)
[2022-02-04] MEDS: amLODIPine BESYLATE 10 MG TABLET (FP) PO SCH (10:12)
[2022-02-04] MEDS: NICOTINE 7 MG/24 HOURS TOPICAL PATCH TD SCH (10:13)
[2022-02-04] MEDS: PRENATAL VITAMINS W/ FOLIC ACID TABLET (FP) PO SCH (10:13)
[2022-02-04] MEDS: OLANZapine 10 MG TABLET PO SCH (21:32)
[2022-02-04] MEDS: MELATONIN 5 MG TABLETS PO SCH (21:32)
[2022-02-04] MEDS: THIAMINE HCL 100 MG TABLET (FP) PO SCH (21:32)
[2022-02-05] MEDS: metFORMIN HCL 500 MG TABLET (FP) PO SCH ×2 (06:18→16:35)
[2022-02-05] MEDS: amLODIPine BESYLATE 10 MG TABLET (FP) PO SCH (10:06)
[2022-02-05] MEDS: SERTRALINE HCL 50 MG TABLET (FP) PO SCH (10:07)
[2022-02-05] MEDS: PRENATAL VITAMINS W/ FOLIC ACID TABLET (FP) PO SCH (10:07)
[2022-02-05] MEDS: ASPIRIN COATED 81 MG TABLET.EC PO SCH (10:07)
[2022-02-05] MEDS: METOPROLOL TARTRATE 50 MG TABLET (FP) PO SCH (10:08)
[2022-02-05] MEDS: NICOTINE 7 MG/24 HOURS TOPICAL PATCH TD SCH (10:09)
[2022-02-05] MEDS: THIAMINE HCL 100 MG TABLET (FP) PO SCH (21:05)
[2022-02-05] MEDS: MELATONIN 5 MG TABLETS PO SCH (21:05)
[2022-02-05] MEDS: OLANZapine 10 MG TABLET PO SCH (21:06)
[2022-02-06] MEDS: metFORMIN HCL 500 MG TABLET (FP) PO SCH ×2 (06:23→16:30)
[2022-02-06] MEDS: ASPIRIN COATED 81 MG TABLET.EC PO SCH (09:39)
[2022-02-06] MEDS: METOPROLOL TARTRATE 50 MG TABLET (FP) PO SCH (09:39)
[2022-02-06] MEDS: NICOTINE 7 MG/24 HOURS TOPICAL PATCH TD SCH (09:40)
[2022-02-06] MEDS: amLODIPine BESYLATE 10 MG TABLET (FP) PO SCH (09:40)
[2022-02-06] MEDS: PRENATAL VITAMINS W/ FOLIC ACID TABLET (FP) PO SCH (09:40)
[2022-02-06] MEDS: SERTRALINE HCL 50 MG TABLET (FP) PO SCH (09:40)
[2022-02-06] MEDS: OLANZapine 10 MG TABLET PO SCH (21:13)
[2022-02-06] MEDS: MELATONIN 5 MG TABLETS PO SCH (21:13)
[2022-02-06] MEDS: THIAMINE HCL 100 MG TABLET (FP) PO SCH (21:13)
[2022-02-07] MEDS: metFORMIN HCL 500 MG TABLET (FP) PO SCH ×2 (07:04→16:48)
[2022-02-07] MEDS: NICOTINE 7 MG/24 HOURS TOPICAL PATCH TD SCH (10:00)
[2022-02-07] MEDS: ASPIRIN COATED 81 MG TABLET.EC PO SCH (10:00)
[2022-02-07] MEDS: METOPROLOL TARTRATE 50 MG TABLET (FP) PO SCH (10:00)
[2022-02-07] MEDS: amLODIPine BESYLATE 10 MG TABLET (FP) PO SCH (10:01)
[2022-02-07] MEDS: PRENATAL VITAMINS W/ FOLIC ACID TABLET (FP) PO SCH (10:01)
[2022-02-07] MEDS: SERTRALINE HCL 50 MG TABLET (FP) PO SCH (10:01)
[2022-02-07] MEDS: OLANZapine 10 MG TABLET PO SCH (21:19)
[2022-02-07] MEDS: THIAMINE HCL 100 MG TABLET (FP) PO SCH (21:19)
[2022-02-07] MEDS: MELATONIN 5 MG TABLETS PO SCH (21:19)
[2022-02-08] MEDS: metFORMIN HCL 500 MG TABLET (FP) PO SCH ×2 (06:22→16:47)
[2022-02-08] MEDS: amLODIPine BESYLATE 10 MG TABLET (FP) PO SCH (10:05)
[2022-02-08] MEDS: SERTRALINE HCL 50 MG TABLET (FP) PO SCH (10:05)
[2022-02-08] MEDS: ASPIRIN COATED 81 MG TABLET.EC PO SCH (10:05)
[2022-02-08] MEDS: METOPROLOL TARTRATE 50 MG TABLET (FP) PO SCH (10:05)
[2022-02-08] MEDS: NICOTINE 7 MG/24 HOURS TOPICAL PATCH TD SCH (10:05)
[2022-02-08] MEDS: PRENATAL VITAMINS W/ FOLIC ACID TABLET (FP) PO SCH (10:05)
[2022-02-08] MEDS: THIAMINE HCL 100 MG TABLET (FP) PO SCH (21:10)
[2022-02-08] MEDS: MELATONIN 5 MG TABLETS PO SCH (21:10)
[2022-02-08] MEDS: OLANZapine 10 MG TABLET PO SCH (21:11)
[2022-02-09] MEDS: metFORMIN HCL 500 MG TABLET (FP) PO SCH ×2 (07:15→16:54)
[2022-02-09] MEDS ORDERED: amLODIPine BESYLATE 5 MG TABLET (FP) PO ONE (07:18)
[2022-02-09] MEDS: amLODIPine BESYLATE 10 MG TABLET (FP) PO SCH (10:17)
[2022-02-09] MEDS: PRENATAL VITAMINS W/ FOLIC ACID TABLET (FP) PO SCH (10:17)
[2022-02-09] MEDS: METOPROLOL TARTRATE 50 MG TABLET (FP) PO SCH (10:18)
[2022-02-09] MEDS: SERTRALINE HCL 50 MG TABLET (FP) PO SCH (10:18)
[2022-02-09] MEDS: NICOTINE 7 MG/24 HOURS TOPICAL PATCH TD SCH (10:18)
[2022-02-09] MEDS: ASPIRIN COATED 81 MG TABLET.EC PO SCH (10:18)
[2022-02-09] MEDS: NICOTINE 10 MG CARTRIDGE (INHALER) IH PRN (16:53)
[2022-02-09] MEDS: THIAMINE HCL 100 MG TABLET (FP) PO SCH (21:26)
[2022-02-09] MEDS: MELATONIN 5 MG TABLETS PO SCH (21:26)
[2022-02-09] MEDS: OLANZapine 10 MG TABLET PO SCH (21:27)
[2022-02-10] MEDS: metFORMIN HCL 500 MG TABLET (FP) PO SCH ×2 (06:18→16:52)
[2022-02-10] MEDS: amLODIPine BESYLATE 10 MG TABLET (FP) PO SCH (09:58)
[2022-02-10] MEDS: ASPIRIN COATED 81 MG TABLET.EC PO SCH (09:58)
[2022-02-10] MEDS: NICOTINE 7 MG/24 HOURS TOPICAL PATCH TD SCH (09:58)
[2022-02-10] MEDS: SERTRALINE HCL 50 MG TABLET (FP) PO SCH (09:58)
[2022-02-10] MEDS: METOPROLOL TARTRATE 50 MG TABLET (FP) PO SCH (09:58)
[2022-02-10] MEDS: PRENATAL VITAMINS W/ FOLIC ACID TABLET (FP) PO SCH (09:58)
[2022-02-10] MEDS: OLANZapine 10 MG TABLET PO SCH (21:12)
[2022-02-10] MEDS: THIAMINE HCL 100 MG TABLET (FP) PO SCH (21:12)
[2022-02-10] MEDS: MELATONIN 5 MG TABLETS PO SCH (21:12)
[2022-02-11] MEDS: metFORMIN HCL 500 MG TABLET (FP) PO SCH ×2 (06:14→16:54)
[2022-02-11] MEDS: PRENATAL VITAMINS W/ FOLIC ACID TABLET (FP) PO SCH (09:44)
[2022-02-11] MEDS: SERTRALINE HCL 50 MG TABLET (FP) PO SCH (09:44)
[2022-02-11] MEDS: METOPROLOL TARTRATE 50 MG TABLET (FP) PO SCH (09:44)
[2022-02-11] MEDS: ASPIRIN COATED 81 MG TABLET.EC PO SCH (09:44)
[2022-02-11] MEDS: amLODIPine BESYLATE 10 MG TABLET (FP) PO SCH (09:44)
[2022-02-11] MEDS: NICOTINE 7 MG/24 HOURS TOPICAL PATCH TD SCH (09:45)
[2022-02-11] MEDS: MELATONIN 5 MG TABLETS PO SCH (22:06)
[2022-02-11] MEDS: THIAMINE HCL 100 MG TABLET (FP) PO SCH (22:06)
[2022-02-11] MEDS: OLANZapine 10 MG TABLET PO SCH (22:06)
[2022-02-12] MEDS: metFORMIN HCL 500 MG TABLET (FP) PO SCH ×2 (06:34→17:09)
[2022-02-12] MEDS: SERTRALINE HCL 50 MG TABLET (FP) PO SCH (09:49)
[2022-02-12] MEDS: PRENATAL VITAMINS W/ FOLIC ACID TABLET (FP) PO SCH (09:49)
[2022-02-12] MEDS: METOPROLOL TARTRATE 50 MG TABLET (FP) PO SCH (09:50)
[2022-02-12] MEDS: ASPIRIN COATED 81 MG TABLET.EC PO SCH (09:50)
[2022-02-12] MEDS: amLODIPine BESYLATE 10 MG TABLET (FP) PO SCH (09:50)
[2022-02-12] MEDS: NICOTINE 7 MG/24 HOURS TOPICAL PATCH TD SCH (09:51)
[2022-02-12] MEDS: THIAMINE HCL 100 MG TABLET (FP) PO SCH (21:11)
[2022-02-12] MEDS: MELATONIN 5 MG TABLETS PO SCH (21:11)
[2022-02-12] MEDS: OLANZapine 10 MG TABLET PO SCH (21:11)
[2022-02-13] MEDS: metFORMIN HCL 500 MG TABLET (FP) PO SCH ×2 (06:33→16:51)
[2022-02-13] MEDS: amLODIPine BESYLATE 10 MG TABLET (FP) PO SCH (10:01)
[2022-02-13] MEDS: NICOTINE 7 MG/24 HOURS TOPICAL PATCH TD SCH (10:01)
[2022-02-13] MEDS: METOPROLOL TARTRATE 50 MG TABLET (FP) PO SCH (10:01)
[2022-02-13] MEDS: PRENATAL VITAMINS W/ FOLIC ACID TABLET (FP) PO SCH (10:01)
[2022-02-13] MEDS: ASPIRIN COATED 81 MG TABLET.EC PO SCH (10:01)
[2022-02-13] MEDS: SERTRALINE HCL 50 MG TABLET (FP) PO SCH (10:01)
[2022-02-13] MEDS: MELATONIN 5 MG TABLETS PO SCH (21:30)
[2022-02-13] MEDS: THIAMINE HCL 100 MG TABLET (FP) PO SCH (21:30)
[2022-02-13] MEDS: OLANZapine 10 MG TABLET PO SCH (21:30)
[2022-02-14] MEDS: metFORMIN HCL 500 MG TABLET (FP) PO SCH ×2 (06:17→16:31)
[2022-02-14] MEDS: METOPROLOL TARTRATE 50 MG TABLET (FP) PO SCH (09:42)
[2022-02-14] MEDS: ASPIRIN COATED 81 MG TABLET.EC PO SCH (09:42)
[2022-02-14] MEDS: SERTRALINE HCL 50 MG TABLET (FP) PO SCH (09:43)
[2022-02-14] MEDS: NICOTINE 7 MG/24 HOURS TOPICAL PATCH TD SCH (09:43)
[2022-02-14] MEDS: PRENATAL VITAMINS W/ FOLIC ACID TABLET (FP) PO SCH (09:43)
[2022-02-14] MEDS: amLODIPine BESYLATE 10 MG TABLET (FP) PO SCH (09:43)
[2022-02-14] MEDS: MELATONIN 5 MG TABLETS PO SCH (21:15)
[2022-02-14] MEDS: THIAMINE HCL 100 MG TABLET (FP) PO SCH (21:15)
[2022-02-14] MEDS: OLANZapine 10 MG TABLET PO SCH (21:15)
[2022-02-15] MEDS: metFORMIN HCL 500 MG TABLET (FP) PO SCH ×2 (06:20→17:00)
[2022-02-15] MEDS: METOPROLOL TARTRATE 50 MG TABLET (FP) PO SCH (09:49)
[2022-02-15] MEDS: ASPIRIN COATED 81 MG TABLET.EC PO SCH (09:50)
[2022-02-15] MEDS: amLODIPine BESYLATE 10 MG TABLET (FP) PO SCH (09:50)
[2022-02-15] MEDS: NICOTINE 7 MG/24 HOURS TOPICAL PATCH TD SCH (09:50)
[2022-02-15] MEDS: SERTRALINE HCL 50 MG TABLET (FP) PO SCH (09:50)
[2022-02-15] MEDS: PRENATAL VITAMINS W/ FOLIC ACID TABLET (FP) PO SCH (09:50)
[2022-02-15] MEDS: MELATONIN 5 MG TABLETS PO SCH (21:04)
[2022-02-15] MEDS: OLANZapine 10 MG TABLET PO SCH (21:04)
[2022-02-15] MEDS: THIAMINE HCL 100 MG TABLET (FP) PO SCH (21:04)
[2022-02-15] MEDS: NICOTINE 10 MG CARTRIDGE (INHALER) IH PRN (21:05)
[2022-02-16] MEDS: metFORMIN HCL 500 MG TABLET (FP) PO SCH ×2 (06:24→16:45)
[2022-02-16] MEDS: SERTRALINE HCL 50 MG TABLET (FP) PO SCH (10:11)
[2022-02-16] MEDS: amLODIPine BESYLATE 10 MG TABLET (FP) PO SCH (10:11)
[2022-02-16] MEDS: NICOTINE 7 MG/24 HOURS TOPICAL PATCH TD SCH (10:11)
[2022-02-16] MEDS: ASPIRIN COATED 81 MG TABLET.EC PO SCH (10:11)
[2022-02-16] MEDS: METOPROLOL TARTRATE 50 MG TABLET (FP) PO SCH (10:13)
[2022-02-16] MEDS: PRENATAL VITAMINS W/ FOLIC ACID TABLET (FP) PO SCH (10:14)
[2022-02-16] MEDS: MELATONIN 5 MG TABLETS PO SCH (21:13)
[2022-02-16] MEDS: THIAMINE HCL 100 MG TABLET (FP) PO SCH (21:13)
[2022-02-16] MEDS: OLANZapine 10 MG TABLET PO SCH (21:13)
[2022-02-17] MEDS: metFORMIN HCL 500 MG TABLET (FP) PO SCH (06:30)
[2022-02-17 06:50] VITALS: BP 150/91; PULSE 88; TEMP 97.1
[2022-02-17] MEDS: SERTRALINE HCL 50 MG TABLET (FP) PO SCH (09:32)
[2022-02-17] MEDS: ASPIRIN COATED 81 MG TABLET.EC PO SCH (09:32)
[2022-02-17] MEDS: amLODIPine BESYLATE 10 MG TABLET (FP) PO SCH (09:32)
[2022-02-17] MEDS: PRENATAL VITAMINS W/ FOLIC ACID TABLET (FP) PO SCH (09:32)
== END 2022-02-17 10:10 | disposition home or self-care (01) | DRG 772 ==
LOC: YASAS 13:24 → Y3E 13:25
PROVIDERS: ADMIT Allergy & Immunology; ATTEND Psychiatry & Neurology Pain Medicine
PROC: HZ42ZZZ Group Counseling for Substance Abuse Treatment, Cognitive-Behavioral (ICD-10-PCS; principal; 2022-01-20)
DX: F10.20 Alcohol dependence, uncomplicated (principal); F14.20 Cocaine dependence, uncomplicated; F12.20 Cannabis dependence, uncomplicated; F17.210 Nicotine dependence, cigarettes, uncomplicated; I10 Essential (primary) hypertension; E78.5 Hyperlipidemia, unspecified; J45.909 Unspecified asthma, uncomplicated; E11.9 Type 2 diabetes mellitus without complications; Z79.84 Long term (current) use of oral hypoglycemic drugs; Z96.642 Presence of left artificial hip joint; Z96.652 Presence of left artificial knee joint; Z86.19 Personal history of other infectious and parasitic diseases; Z56.0 Unemployment, unspecified
CPT/HCPCS: 82962

== ENCOUNTER 2022-06-14 15:15 | Inpatient (IN) | payer OTHER ==
[2022-06-14 15:57] VITALS: BMI 22.3
[2022-06-14] MEDS ORDERED: BENZOCAINE/MENTHOL (CHLORASEPTIC ) LOZENGE MM PRN (17:12)
[2022-06-14] MEDS ORDERED: NICOTINE POLACRILEX 4 MG GUM BUC PRN (17:12)
[2022-06-14] MEDS ORDERED: ONDANSETRON *ODT* 4 MG TABLET SL PRN (17:12)
[2022-06-14] MEDS ORDERED: MAG HYDROX/AL HYDROX/SIMETH 30 ML UNIT-DOSE CUP PO PRN (17:12)
[2022-06-14] MEDS ORDERED: NICOTINE 10 MG CARTRIDGE (INHALER) IH PRN (17:12)
[2022-06-14] MEDS ORDERED: MAGNESIUM CITRATE 300 ML BOTTLE PO PRN (17:12)
[2022-06-14] MEDS ORDERED: BISMUTH SUBSALICYLATE 524 MG/30 ML PO PRN (17:12)
[2022-06-14] MEDS ORDERED: IBUPROFEN 400 MG TABLET (FP) PO PRN (17:12)
[2022-06-14] MEDS ORDERED: IBUPROFEN 600 MG TABLET (FP) PO PRN (17:12)
[2022-06-14] MEDS ORDERED: LOPERAMIDE HCL 2 MG CAPSULE PO PRN (17:12)
[2022-06-14] MEDS ORDERED: ACETAMINOPHEN 325 MG TABLET (FP) PO PRN ×2 (17:12)
[2022-06-14] MEDS ORDERED: DICYCLOMINE HCL 10 MG CAPSULE PO PRN (17:12)
[2022-06-14] MEDS ORDERED: NALOXONE HCL (KLOXXADO) 8 MG SPRAY NS PRN (17:12)
[2022-06-14] MEDS ORDERED: MAGNESIUM HYDROX 2400MG/30ML ORAL SUSPENSION 30 ML CUP PO PRN (17:12)
[2022-06-14] MEDS ORDERED: ALBUTEROL SO4 HFA INHALER IH PRN (17:15)
[2022-06-14] MEDS: hydrOXYzine PAMOATE 25 MG CAPSULE (FP) PO PRN (19:25)
[2022-06-14] MEDS: METHOCARBAMOL 500 MG TABLET PO PRN (19:25)
[2022-06-14] MEDS: INSULIN SLIDING SCALE (NOVOLOG) 1 VIAL SQ SCH (21:58)
[2022-06-14] MEDS: THIAMINE HCL 100 MG TABLET (FP) PO SCH (22:40)
[2022-06-14] MEDS: OLANZapine 10 MG TABLET PO SCH (22:40)
[2022-06-14] MEDS: MELATONIN 5 MG TABLETS PO SCH (22:46)
[2022-06-15] MEDS: INSULIN SLIDING SCALE (NOVOLOG) 1 VIAL SQ SCH ×4 (07:09→22:43)
[2022-06-15] MEDS: metFORMIN HCL 500 MG TABLET (FP) PO SCH ×2 (07:10→17:25)
[2022-06-15] MEDS ORDERED: chlordiazePOXIDE HCL 25 MG CAPSULE PO PRN (09:10)
[2022-06-15] MEDS: chlordiazePOXIDE HCL 25 MG CAPSULE PO SCH ×3 (10:20→22:42)
[2022-06-15] MEDS: amLODIPine BESYLATE 10 MG TABLET (FP) PO SCH (10:21)
[2022-06-15] MEDS: METOPROLOL TARTRATE 50 MG TABLET (FP) PO SCH (10:21)
[2022-06-15] MEDS: SERTRALINE HCL 50 MG TABLET (FP) PO SCH (10:21)
[2022-06-15] MEDS: ASPIRIN COATED 81 MG TABLET.EC PO SCH (10:21)
[2022-06-15] MEDS: PRENATAL VITAMINS W/ FOLIC ACID TABLET (FP) PO SCH (10:21)
[2022-06-15 11:34] LABS: HEMATOCRIT 40.8 % (35.4-49); HEMOGLOBIN 13.7 GM/dL (11.7-16.9); MCH 30.8 pg (25.7-33.7); MCHC 33.7 g/dl (32.0-35.9); MEAN CELL VOLUME 91.4 fl (80-96); MEAN PLT VOLUME 7.6 fl (7.5-11.1); PLATELET COUNT 238 10^3/uL (134-434); RBC 4.46 M/mm3 (4.00-5.60); RDW 14.4 % (11.9-15.9); WHITE BLOOD COUNT 9.8 K/mm3 (4.0-10.0)
[2022-06-15 11:41] LABS: ALBUMIN 3.5 g/dl (3.4-5.0)
[2022-06-15 11:42] LABS: BLOOD UREA NITROGEN 20.7 mg/dL (7-18); CALCIUM 9.4 mg/dL (8.5-10.1)
[2022-06-15 11:44] LABS: CREATININE 0.9 mg/dL (0.55-1.3)
[2022-06-15 11:46] LABS: BILIRUBIN,TOTAL 0.2 mg/dL (0.2-1); TOT PROT 6.6 g/dl (6.4-8.2)
[2022-06-15] MEDS ORDERED: INSULIN (NOVOLOG) ASPART 100 UNITS/ML 10ML VIAL ONE (18:05)
[2022-06-15] MEDS: OLANZapine 10 MG TABLET PO SCH (22:42)
[2022-06-15] MEDS: THIAMINE HCL 100 MG TABLET (FP) PO SCH (22:42)
[2022-06-15] MEDS: MELATONIN 5 MG TABLETS PO SCH (22:43)
[2022-06-16] MEDS: chlordiazePOXIDE HCL 25 MG CAPSULE PO SCH ×4 (05:39→22:29)
[2022-06-16] MEDS: metFORMIN HCL 500 MG TABLET (FP) PO SCH ×2 (07:24→17:30)
[2022-06-16] MEDS: INSULIN SLIDING SCALE (NOVOLOG) 1 VIAL SQ SCH ×4 (07:26→21:40)
[2022-06-16] MEDS: METOPROLOL TARTRATE 50 MG TABLET (FP) PO SCH (10:29)
[2022-06-16] MEDS: SERTRALINE HCL 50 MG TABLET (FP) PO SCH (10:29)
[2022-06-16] MEDS: hydrOXYzine PAMOATE 25 MG CAPSULE (FP) PO PRN (10:29)
[2022-06-16] MEDS: PRENATAL VITAMINS W/ FOLIC ACID TABLET (FP) PO SCH (10:29)
[2022-06-16] MEDS: ASPIRIN COATED 81 MG TABLET.EC PO SCH (10:29)
[2022-06-16] MEDS: METHOCARBAMOL 500 MG TABLET PO PRN (10:29)
[2022-06-16] MEDS: amLODIPine BESYLATE 10 MG TABLET (FP) PO SCH (10:29)
[2022-06-16] MEDS ORDERED: cloNIDine HCL 0.1 MG TABLET PO ONE (13:45)
[2022-06-16] MEDS ORDERED: INSULIN (NOVOLOG) ASPART 100 UNITS/ML 10ML VIAL ONE (17:38)
[2022-06-16] MEDS: THIAMINE HCL 100 MG TABLET (FP) PO SCH (22:28)
[2022-06-16] MEDS: OLANZapine 10 MG TABLET PO SCH (22:28)
[2022-06-16] MEDS: MELATONIN 5 MG TABLETS PO SCH (22:43)
[2022-06-17] MEDS: chlordiazePOXIDE HCL 25 MG CAPSULE PO SCH ×4 (06:25→22:37)
[2022-06-17] MEDS: INSULIN SLIDING SCALE (NOVOLOG) 1 VIAL SQ SCH ×4 (06:45→22:38)
[2022-06-17] MEDS: metFORMIN HCL 500 MG TABLET (FP) PO SCH ×2 (08:00→17:14)
[2022-06-17] MEDS: amLODIPine BESYLATE 10 MG TABLET (FP) PO SCH (10:41)
[2022-06-17] MEDS: SERTRALINE HCL 50 MG TABLET (FP) PO SCH (10:41)
[2022-06-17] MEDS: hydrOXYzine PAMOATE 25 MG CAPSULE (FP) PO PRN (10:41)
[2022-06-17] MEDS: PRENATAL VITAMINS W/ FOLIC ACID TABLET (FP) PO SCH (10:41)
[2022-06-17] MEDS: ASPIRIN COATED 81 MG TABLET.EC PO SCH (10:41)
[2022-06-17] MEDS: METOPROLOL TARTRATE 50 MG TABLET (FP) PO SCH (10:41)
[2022-06-17] MEDS: METHOCARBAMOL 500 MG TABLET PO PRN (10:41)
[2022-06-17] MEDS ORDERED: INSULIN (NOVOLOG) ASPART 100 UNITS/ML 10ML VIAL ONE (21:52)
[2022-06-17] MEDS: MELATONIN 5 MG TABLETS PO SCH (22:37)
[2022-06-17] MEDS: THIAMINE HCL 100 MG TABLET (FP) PO SCH (22:37)
[2022-06-17] MEDS: OLANZapine 10 MG TABLET PO SCH (22:37)
[2022-06-18] MEDS ORDERED: chlordiazePOXIDE HCL 10 MG CAPSULE PO PRN
[2022-06-18] MEDS: metFORMIN HCL 500 MG TABLET (FP) PO SCH ×2 (06:26→17:26)
[2022-06-18] MEDS: chlordiazePOXIDE HCL 10 MG CAPSULE PO SCH ×4 (06:26→22:31)
[2022-06-18] MEDS: INSULIN SLIDING SCALE (NOVOLOG) 1 VIAL SQ SCH ×4 (06:32→23:26)
[2022-06-18] MEDS: amLODIPine BESYLATE 10 MG TABLET (FP) PO SCH (10:55)
[2022-06-18] MEDS: SERTRALINE HCL 50 MG TABLET (FP) PO SCH (10:55)
[2022-06-18] MEDS: PRENATAL VITAMINS W/ FOLIC ACID TABLET (FP) PO SCH (10:55)
[2022-06-18] MEDS: METHOCARBAMOL 500 MG TABLET PO PRN (10:55)
[2022-06-18] MEDS: ASPIRIN COATED 81 MG TABLET.EC PO SCH (10:55)
[2022-06-18] MEDS: METOPROLOL TARTRATE 50 MG TABLET (FP) PO SCH (10:55)
[2022-06-18] MEDS: hydrOXYzine PAMOATE 25 MG CAPSULE (FP) PO PRN (10:55)
[2022-06-18] MEDS: THIAMINE HCL 100 MG TABLET (FP) PO SCH (22:30)
[2022-06-18] MEDS: MELATONIN 5 MG TABLETS PO SCH (22:30)
[2022-06-18] MEDS: OLANZapine 10 MG TABLET PO SCH (22:31)
[2022-06-19] MEDS: chlordiazePOXIDE HCL 10 MG CAPSULE PO SCH ×2 (06:08→17:21)
[2022-06-19] MEDS: INSULIN SLIDING SCALE (NOVOLOG) 1 VIAL SQ SCH ×4 (06:54→22:41)
[2022-06-19] MEDS: metFORMIN HCL 500 MG TABLET (FP) PO SCH ×2 (06:54→17:20)
[2022-06-19] MEDS: ASPIRIN COATED 81 MG TABLET.EC PO SCH (10:43)
[2022-06-19] MEDS: SERTRALINE HCL 50 MG TABLET (FP) PO SCH (10:43)
[2022-06-19] MEDS: PRENATAL VITAMINS W/ FOLIC ACID TABLET (FP) PO SCH (10:43)
[2022-06-19] MEDS: METOPROLOL TARTRATE 50 MG TABLET (FP) PO SCH (10:43)
[2022-06-19] MEDS: amLODIPine BESYLATE 10 MG TABLET (FP) PO SCH (10:43)
[2022-06-19] MEDS ORDERED: INSULIN (NOVOLOG) ASPART 100 UNITS/ML 10ML VIAL ONE ×2 (12:06→17:17)
[2022-06-19] MEDS: OLANZapine 10 MG TABLET PO SCH (22:41)
[2022-06-19] MEDS: THIAMINE HCL 100 MG TABLET (FP) PO SCH (22:41)
[2022-06-19] MEDS: MELATONIN 5 MG TABLETS PO SCH (22:42)
[2022-06-20] MEDS ORDERED: chlordiazePOXIDE HCL 10 MG CAPSULE PO ONE (05:00)
[2022-06-20 06:10] VITALS: TEMP 97.3
[2022-06-20] MEDS: metFORMIN HCL 500 MG TABLET (FP) PO SCH (06:17)
[2022-06-20] MEDS ORDERED: INSULIN (NOVOLOG) ASPART 100 UNITS/ML 10ML VIAL ONE (06:39)
[2022-06-20] MEDS: INSULIN SLIDING SCALE (NOVOLOG) 1 VIAL SQ SCH (06:40)
[2022-06-20] MEDS: amLODIPine BESYLATE 10 MG TABLET (FP) PO SCH (09:14)
[2022-06-20] MEDS: SERTRALINE HCL 50 MG TABLET (FP) PO SCH (09:14)
[2022-06-20] MEDS: METOPROLOL TARTRATE 50 MG TABLET (FP) PO SCH (09:15)
[2022-06-20] MEDS: PRENATAL VITAMINS W/ FOLIC ACID TABLET (FP) PO SCH (09:15)
[2022-06-20] MEDS: ASPIRIN COATED 81 MG TABLET.EC PO SCH (09:15)
[2022-06-20 09:22] VITALS: BP 131/78; PULSE 77; RESP 18
== END 2022-06-20 10:10 | disposition other institution (70) | DRG 774 ==
LOC: YASAS 15:15 → UNDOADMIN 17:32 → Y6N 17:32
PROVIDERS: ADMIT Allergy & Immunology; ATTEND Surgery
PROC: HZ2ZZZZ Detoxification Services for Substance Abuse Treatment (ICD-10-PCS; principal; 2022-06-14)
DX: F10.230 Alcohol dependence with withdrawal, uncomplicated (principal); F14.20 Cocaine dependence, uncomplicated; F12.20 Cannabis dependence, uncomplicated; F17.210 Nicotine dependence, cigarettes, uncomplicated; F20.9 Schizophrenia, unspecified; F19.282 Other psychoactive substance dependence with psychoactive substance-induced sleep disorder; F19.24 Other psychoactive substance dependence with psychoactive substance-induced mood disorder; I10 Essential (primary) hypertension; E78.5 Hyperlipidemia, unspecified; J45.909 Unspecified asthma, uncomplicated; E11.9 Type 2 diabetes mellitus without complications; Z79.84 Long term (current) use of oral hypoglycemic drugs; Z86.19 Personal history of other infectious and parasitic diseases; Z96.642 Presence of left artificial hip joint; Z99.89 Dependence on other enabling machines and devices
CPT/HCPCS: 36415; 80053; 82962; 84520; 85027; 86780; C9803-CS; U0003; U0005